=== PATIENT | male | born 1990 | race Caucasian/White ===

== ENCOUNTER 2021-10-13 11:08 | Emergency (ER) | payer MEDICAID ==
[~2021-10-13] VITALS: Ht 172.7 cm; Wt 163.3 kg
[2021-10-13] MEDS ORDERED: LIDOCAINE HCL 1% 20 ML VIAL ONE (11:39)
[2021-10-13] MEDS ORDERED: LIDOCAINE HCL 1% 20 ML VIAL IJ ONE (11:45)
--- NOTE | 2021-10-13 11:50 | NUR ---
DR PRITCHETT AT BEDSIDE FOR I&D UNDER LOCAL ANESTHESIA.
[2021-10-13] MEDS ORDERED: NEOMY/BACITRA/POLYMYXIN B OINT UD PACKET TP ONE ×2 (11:53→12:00)
[2021-10-13] MEDS ORDERED: CLIN300C3 PO (11:58)
[2021-10-13] MEDS ORDERED: HYDR-3972 PO (11:58)
[2021-10-13] MEDS ORDERED: CLINDAMYCIN HCL 300 MG CAPSULE ONE (11:59)
[2021-10-13] MEDS ORDERED: CLINDAMYCIN HCL 150 MG CAPSULE PO ONE (12:00)
--- NOTE | 2021-10-13 12:05 | NUR ---
Patient discharged to home in stable condition. Written and verbal after care instructions given. Patient verbalizes understanding of instructions. Stressed follow up or return to ER for worsening s/s.
== END 2021-10-13 12:06 | disposition home or self-care (01) ==
LOC: ER 11:14
DX: L02.811 Cutaneous abscess of head [any part, except face] (principal); E66.01 Morbid (severe) obesity due to excess calories; Z68.43 Body mass index [BMI] 50.0-59.9, adult
CPT/HCPCS: 10060; 99283; J3490; A4663

== ENCOUNTER 2021-10-15 11:35 | Emergency (ER) | payer MEDICAID ==
[~2021-10-15] VITALS: Ht 172.7 cm; Wt 163.3 kg
[~2021-10-15 11:35] MED LIST: CLIN300C3 PO; HYDR-3972 PO
[2021-10-15] MEDS ORDERED: MUPI22OI2 TP (12:15)
[2021-10-15] MEDS ORDERED: MUPIROCIN 2% OINT 22 GM TUBE ONE (12:16)
[2021-10-15] MEDS ORDERED: MUPIROCIN 2% OINT 22 GM TUBE TP ONE (12:20)
== END 2021-10-15 12:25 | disposition home or self-care (01) ==
LOC: ER 11:35
DX: L02.811 Cutaneous abscess of head [any part, except face] (principal); E66.9 Obesity, unspecified; Z68.43 Body mass index [BMI] 50.0-59.9, adult; R03.0 Elevated blood-pressure reading, without diagnosis of hypertension
CPT/HCPCS: A4663